=== PATIENT | female | born 2000 | race American Indian/Alaskan Native ===

== ENCOUNTER 2023-05-05 19:45 | Emergency (ER) | payer SELFPAY ==
[2023-05-05] MEDS ORDERED: Sodium Chloride 0.9% 10 ML Syringe FLUSH PRN (21:33)
[2023-05-05] MEDS ORDERED: Acetaminophen 325 MG Tab PO ONE (21:35)
[2023-05-05 21:48] LABS: BASOPHILS ABSOLUTE AUTO 0.1 K/mm3 (0.0-0.2); BASOPHILS PERCENT AUTO 0.6 % (0.0-1.0); EOSINOPHILS ABSOLUTE AUTO 0.2 K/mm3 (0.0-0.4); EOSINOPHILS PERCENT AUTO 1.3 % (0.0-6.0); HEMATOCRIT 34.6 % (37.0-47.0); HEMOGLOBIN 11.9 gm/dl (12.0-16.0); IMMATURE GRAN ABSOLUTE AUTO 0.19 K/mm3 (0.00-0.05); IMMATURE GRAN PERCENT AUTO 1.7 % (0.0-0.4); LYMPHOCYTES ABSOLUTE AUTO 2.1 K/mm3 (1.0-4.8); MEAN CORPUSCULAR HEMOGLOBIN 31.2 pg (28.0-32.0); MEAN CORPUSCULAR HGB CONC 34.4 g/dl (32.0-36.0); MEAN CORPUSCULAR VOLUME 90.6 fl (83.0-99.0); MEAN PLATELET VOLUME 10.7 fl (9.4-12.3); MONOCYTES PERCENT AUTO 9.1 % (0.0-8.0); NEUTROPHILS ABSOLUTE AUTO 7.6 K/mm3 (1.8-7.7); NEUTROPHILS PERCENT AUTO 68.3 % (41.0-71.0); PLATELET COUNT,PLT 240 K/mm3 (150-400); RED BLOOD CELL COUNT 3.82 M/mm3 (4.10-5.30); WHITE BLOOD CELL COUNT,WBC 11.13 K/mm3 (3.9-11.3)
[2023-05-05 21:53] LABS: A/G RATIO 0.7 (1-2); ANION GAP 18.4 (5-15); BILIRUBIN TOTAL 0.2 mg/dL (0.2-1.0); CREATININE 0.5 mg/dL (0.55-1.02); EST CRCL DRUG DOSING (CG) 181.31 mL/min; POTASSIUM,K 3.4 mEq/L (3.5-5.1); PROTEIN TOTAL,TP 7.1 g/dl (6.4-8.2)
[2023-05-05] MEDS ORDERED: Sodium Chloride 0.9% 1,000 ML IV ONE (22:40)
== END 2023-05-06 00:11 | disposition home or self-care (01) ==
LOC: JD.ED 19:45 → JD.OBCHECK 19:45 → EDSTATUS 19:49 → JD.ED 05-06 00:11
DX: O9A.212 Injury, poisoning and certain other consequences of external causes complicating pregnancy, second trimester (principal); S09.90XA Unspecified injury of head, initial encounter; O99.891 Other specified diseases and conditions complicating pregnancy; Z3A.27 27 weeks gestation of pregnancy; Z91.018 Allergy to other foods; Z79.899 Other long term (current) drug therapy; W22.8XXA Striking against or struck by other objects, initial encounter
CPT/HCPCS: 36415; 70450; 76815; 80053; 84484; 85025; 93005; 96360; 99284; A9270; J3490; J7030; 93010

== ENCOUNTER 2023-07-11 07:06 | Inpatient (IN) | payer OTHER, MEDICAID ==
[2023-07-11] MEDS ORDERED: Lidocaine 1% 50 ML MDV INJECT PRN (07:17)
[2023-07-11] MEDS ORDERED: Ondansetron 4 MG/2 ML SDV IVPUSH PRN ×2 (07:17→19:24)
[2023-07-11] MEDS ORDERED: Oxytocin/Lactated Ringers 30 UNIT/500 ML BAG IV SCH ×2 (07:30→20:45)
[2023-07-11] MEDS: Oxytocin/Lactated Ringers 30 UNIT/500 ML BAG IV SCH (07:56)
[2023-07-11] MEDS: Lactated Ringers 1,000 ML IV SCH (07:59)
[2023-07-11 08:44] LABS: BASOPHILS ABSOLUTE AUTO 0.1 K/mm3 (0.0-0.2); BASOPHILS PERCENT AUTO 0.5 % (0.0-1.0); EOSINOPHILS ABSOLUTE AUTO 0.2 K/mm3 (0.0-0.4); EOSINOPHILS PERCENT AUTO 1.6 % (0.0-6.0); HEMATOCRIT 33.8 % (37.0-47.0); HEMOGLOBIN 11.2 gm/dl (12.0-16.0); IMMATURE GRAN ABSOLUTE AUTO 0.09 K/mm3 (0.00-0.05); IMMATURE GRAN PERCENT AUTO 0.8 % (0.0-0.4); LYMPHOCYTES ABSOLUTE AUTO 2.1 K/mm3 (1.0-4.8); LYMPHOCYTES PERCENT AUTO 19.5 % (24.0-44.0); MEAN CORPUSCULAR HEMOGLOBIN 28.1 pg (28.0-32.0); MEAN CORPUSCULAR HGB CONC 33.1 g/dl (32.0-36.0); MEAN CORPUSCULAR VOLUME 84.9 fl (83.0-99.0); MEAN PLATELET VOLUME 11.5 fl (9.4-12.3); MONOCYTES ABSOLUTE AUTO 0.9 K/mm3 (0.0-0.8); MONOCYTES PERCENT AUTO 8.6 % (0.0-8.0); NEUTROPHILS ABSOLUTE AUTO 7.3 K/mm3 (1.8-7.7); PLATELET COUNT,PLT 222 K/mm3 (150-400); RED BLOOD CELL COUNT 3.98 M/mm3 (4.10-5.30); WHITE BLOOD CELL COUNT,WBC 10.64 K/mm3 (3.9-11.3)
[2023-07-11] MEDS ORDERED: ePHEDrine 50 MG/ML SDV IVPUSH PRN ×2 (12:30→20:33)
[2023-07-11] MEDS ORDERED: diphenhydrAMINE 50 MG/ML SDV IVPUSH PRN ×3 (12:30→20:33)
[2023-07-11] MEDS ORDERED: fentaNYL 100 MCG/2 ML SDV EPIDUR PRN (12:30)
[2023-07-11] MEDS ORDERED: Bupivacaine/fentaNYL/NS 100 ML Bag EPIDUR PRN (12:30)
[2023-07-11] MEDS ORDERED: Phenylephrine 1% 10 MG/ML SDV IVPUSH PRN (12:30)
[2023-07-11] MEDS: Nalbuphine HCl 10 MG/ 1ML Amp IVPUSH PRN (14:23)
[2023-07-11] MEDS ORDERED: Azithromycin 500 MG in Sodium Chloride 0.9% 250 ML IV ONE (18:15)
[2023-07-11] MEDS ORDERED: Sodium Chloride 0.9% 10 ML Syringe FLUSH PRN (18:18)
[2023-07-11] MEDS: Azithromycin 500 MG in Sodium Chloride 0.9% 250 ML IV ONE (18:24)
[2023-07-11] MEDS ORDERED: Oxytocin 10 Units/1 ML SDV ONE ×2 (18:30→19:53)
[2023-07-11] MEDS ORDERED: Lactated Ringers 1,000 ML IV SCH (18:30)
[2023-07-11] MEDS ORDERED: Morphine PF 10 MG/10 ML SDV ONE (18:30)
[2023-07-11] MEDS ORDERED: Ketorolac 30 MG/ML SDV ONE (18:30)
[2023-07-11] MEDS ORDERED: Ondansetron 4 MG/2 ML SDV ONE (18:30)
[2023-07-11] MEDS ORDERED: fentaNYL 100 MCG/2 ML SDV ONE (18:30)
[2023-07-11] MEDS: Metoclopramide 10 MG/2 ML SDV IVPUSH ONE (18:36)
[2023-07-11] MEDS: Citric Acid/Sodium Citrate Solution 30 ML Cup PO ONE (18:36)
[2023-07-11] MEDS ORDERED: ceFAZolin 2 GM Vial ONE (19:04)
[2023-07-11] MEDS ORDERED: fentaNYL 100 MCG/2 ML SDV IVPUSH PRN (19:24)
[2023-07-11] MEDS ORDERED: Lactated Ringers 1,000 ML ONE (19:45)
[2023-07-11] MEDS ORDERED: Sennosides 8.6 MG Tab PO PRN (20:33)
[2023-07-11] MEDS ORDERED: Naloxone 0.4 MG/ML SDV IVPUSH PRN (20:33)
[2023-07-11] MEDS: Acetaminophen 325 MG Tab PO SCH (22:19)
[2023-07-11] MEDS: Dextrose 5%-Lactated Ringers 1,000 ML IV SCH (22:21)
[2023-07-11] MEDS: Sodium Chloride 0.9% 10 ML Syringe FLUSH SCH (22:37)
[2023-07-11] MEDS: ceFAZolin 2 GM in Sodium Chloride 0.9% 50 ML IV ONE (22:37)
[2023-07-11] MEDS: Ibuprofen 600 MG Tab PO SCH (23:49)
[2023-07-12] MEDS: oxyCODONE 5 MG Tab PO PRN (02:21)
[2023-07-12 05:54] LABS: HEMATOCRIT 26.4 % (37.0-47.0); MEAN CORPUSCULAR HEMOGLOBIN 29.2 pg (28.0-32.0); MEAN CORPUSCULAR HGB CONC 34.1 g/dl (32.0-36.0); MEAN CORPUSCULAR VOLUME 85.7 fl (83.0-99.0); MEAN PLATELET VOLUME 11.5 fl (9.4-12.3); PLATELET COUNT,PLT 198 K/mm3 (150-400); RED BLOOD CELL COUNT 3.08 M/mm3 (4.10-5.30); WHITE BLOOD CELL COUNT,WBC 10.89 K/mm3 (3.9-11.3)
[2023-07-12] MEDS: Ferrous Sulfate 324 MG Tab.EC PO SCH (20:30)
== END 2023-07-14 19:55 | disposition home or self-care (01) | DRG 788 ==
LOC: JD.OB 07:06 → OBSVTOIN 19:22 → JD.OB 19:22
PROVIDERS: ADMIT Obstetrics & Gynecology; ATTEND Obstetrics & Gynecology
PROC: 10907ZC Drainage of Amniotic Fluid, Therapeutic from Products of Conception, Via Natural or Artificial Opening (ICD-10-PCS; 2023-07-11)
PROC: 10D00Z1 Extraction of Products of Conception, Low, Open Approach (ICD-10-PCS; principal; 2023-07-11 18:30)
DX: O24.424 Gestational diabetes mellitus in childbirth, insulin controlled (principal); O32.1XX0 Maternal care for breech presentation, not applicable or unspecified; O13.4 Gestational [pregnancy-induced] hypertension without significant proteinuria, complicating childbirth; O99.03 Anemia complicating the puerperium; Z3A.37 37 weeks gestation of pregnancy; Z91.018 Allergy to other foods; Z37.0 Single live birth
CPT/HCPCS: 01961; 36415; 59025; 82947; 85025; 85027; 86592; 86850; 86900; 86901; 94762; 99140; A9270-GY; J0456; J0690; J1885; J2274; J2300; J2405; J2590; J2765; J3010; J7050; J7120; J7121; J7999

== ENCOUNTER 2023-11-19 20:28 | Emergency (ER) | payer MEDICAID | END 2023-11-19 22:47 | disposition home or self-care (01) | LOC: JD.ED 20:28 | DX: M25.572 Pain in left ankle and joints of left foot (principal); Z79.899 Other long term (current) drug therapy; X50.9XXA Other and unspecified overexertion or strenuous movements or postures, initial encounter; Y92.512 Supermarket, store or market as the place of occurrence of the external cause; Y99.0 Civilian activity done for income or pay | CPT/HCPCS: 70450; 70450-26; 73610-26-LT; 73610-LT; 73630-26-LT; 73630-LT; 99284 ==

== ENCOUNTER 2024-05-21 15:09 | Emergency (ER) | payer MEDICAID ==
[2024-05-21] MEDS: Lidocaine 1% 10 ML MDV INJECT ONE (16:43)
== END 2024-05-21 16:48 | disposition home or self-care (01) ==
LOC: JD.ED 15:09
DX: S81.012A Laceration without foreign body, left knee, initial encounter (principal); S71.112A Laceration without foreign body, left thigh, initial encounter; Z79.899 Other long term (current) drug therapy; W25.XXXA Contact with sharp glass, initial encounter
CPT/HCPCS: 12002; 99282; 99283; J3490

== ENCOUNTER 2025-01-08 00:47 | Emergency (ER) | payer BC, MEDICAID, OTHER ==
[2025-01-08 01:29] LABS: BASOPHILS ABSOLUTE AUTO 0.1 K/mm3 (0.0-0.2); BASOPHILS PERCENT AUTO 0.7 % (0.0-1.0); EOSINOPHILS ABSOLUTE AUTO 0.2 K/mm3 (0.0-0.4); EOSINOPHILS PERCENT AUTO 2.3 % (0.0-6.0); IMMATURE GRAN ABSOLUTE AUTO 0.04 K/mm3 (0.00-0.05); IMMATURE GRAN PERCENT AUTO 0.5 % (0.0-0.4); LYMPHOCYTES ABSOLUTE AUTO 3.2 K/mm3 (1.0-4.8); LYMPHOCYTES PERCENT AUTO 36.5 % (24.0-44.0); MEAN PLATELET VOLUME 10.0 fl (9.4-12.3); MONOCYTES ABSOLUTE AUTO 0.7 K/mm3 (0.0-0.8); MONOCYTES PERCENT AUTO 7.5 % (0.0-8.0); NEUTROPHILS ABSOLUTE AUTO 4.7 K/mm3 (1.8-7.7); NEUTROPHILS PERCENT AUTO 52.5 % (41.0-71.0); NRBC ABSOLUTE 0.00 (0.00-0.02); NRBC PERCENT 0.0 % (0.0-0.2); PLATELET COUNT,PLT 278 K/mm3 (150-400); RED BLOOD CELL COUNT 4.21 M/mm3 (4.10-5.30); WHITE BLOOD CELL COUNT,WBC 8.83 K/mm3 (3.9-11.3)
[2025-01-08 01:39] LABS: APPEARANCE,URINE SLT CLOUDY (Clear); GLUCOSE,URINE NEGATIVE (Negative); OCCULT BLOOD,URINE NEGATIVE (Negative)
[2025-01-08 01:53] LABS: A/G RATIO 1.1 (1-2); ALANINE AMINOTRANSFERASE,ALT 33.0 U/L (14-59); ASPARTATE AMNIOTRANSFERASE,AST 17.0 U/L (15-37); BILIRUBIN TOTAL 0.4 mg/dL (0.2-1.0); BLOOD UREA NITROGEN,BUN 11.0 mg/dL (7-18); CARBON DIOXIDE,CO2 23.0 mEq/L (21-32); CHLORIDE,CL 104.0 mEq/L (98-107); CREATININE 0.7 mg/dL (0.55-1.02); EST CRCL DRUG DOSING (CG) 127.28 mL/min; ESTIMATED GFR 122.0 mL/min (>60); GLUCOSE RANDOM 159.0 mg/dL (70-99); POTASSIUM,K 3.5 mEq/L (3.5-5.1); PROTEIN TOTAL,TP 6.8 g/dl (6.4-8.2); SODIUM,NA 138.0 mEq/L (136-145)
== END 2025-01-08 04:40 | disposition home or self-care (01) ==
LOC: JD.ED 00:47
DX: O20.9 Hemorrhage in early pregnancy, unspecified (principal); Z79.899 Other long term (current) drug therapy; Z3A.01 Less than 8 weeks gestation of pregnancy
CPT/HCPCS: 36415; 76817; 76817-26; 80053; 81001; 84702; 85025; 99284

== ENCOUNTER 2025-02-11 03:28 | Emergency (ER) | payer BC, OTHER ==
[2025-02-11 05:13] LABS: APPEARANCE,URINE CLEAR (Clear); GLUCOSE,URINE NEGATIVE (Negative); OCCULT BLOOD,URINE NEGATIVE (Negative)
[2025-02-11 05:36] LABS: BASOPHILS ABSOLUTE AUTO 0.1 K/mm3 (0.0-0.2); BASOPHILS PERCENT AUTO 0.4 % (0.0-1.0); EOSINOPHILS ABSOLUTE AUTO 0.2 K/mm3 (0.0-0.4); EOSINOPHILS PERCENT AUTO 1.5 % (0.0-6.0); IMMATURE GRAN ABSOLUTE AUTO 0.06 K/mm3 (0.00-0.05); IMMATURE GRAN PERCENT AUTO 0.5 % (0.0-0.4); LYMPHOCYTES ABSOLUTE AUTO 2.7 K/mm3 (1.0-4.8); LYMPHOCYTES PERCENT AUTO 23.0 % (24.0-44.0); MEAN PLATELET VOLUME 10.3 fl (9.4-12.3); MONOCYTES ABSOLUTE AUTO 0.9 K/mm3 (0.0-0.8); MONOCYTES PERCENT AUTO 7.7 % (0.0-8.0); NEUTROPHILS ABSOLUTE AUTO 7.8 K/mm3 (1.8-7.7); NEUTROPHILS PERCENT AUTO 66.9 % (41.0-71.0); NRBC ABSOLUTE 0.00 (0.00-0.02); NRBC PERCENT 0.0 % (0.0-0.2); PLATELET COUNT,PLT 254 K/mm3 (150-400); RED BLOOD CELL COUNT 4.55 M/mm3 (4.10-5.30); WHITE BLOOD CELL COUNT,WBC 11.64 K/mm3 (3.9-11.3)
[2025-02-11 05:59] LABS: SQUAMOUS EPITHELIAL CELLS,UR 0-5 /hpf (0-5)
[2025-02-11 06:30] LABS: A/G RATIO 1.1 (1-2); ALANINE AMINOTRANSFERASE,ALT 31.0 U/L (14-59); ASPARTATE AMNIOTRANSFERASE,AST 13.0 U/L (15-37); BILIRUBIN TOTAL 0.5 mg/dL (0.2-1.0); BLOOD UREA NITROGEN,BUN 8.0 mg/dL (7-18); CARBON DIOXIDE,CO2 22.0 mEq/L (21-32); CHLORIDE,CL 101.0 mEq/L (98-107); CREATININE 0.7 mg/dL (0.55-1.02); EST CRCL DRUG DOSING (CG) 127.28 mL/min; ESTIMATED GFR 122.0 mL/min (>60); GLUCOSE RANDOM 94.0 mg/dL (70-99); POTASSIUM,K 3.5 mEq/L (3.5-5.1); PROTEIN TOTAL,TP 7.4 g/dl (6.4-8.2); SODIUM,NA 137.0 mEq/L (136-145)
== END 2025-02-11 09:40 | disposition home or self-care (01) ==
LOC: JD.ED 03:28
DX: O20.0 Threatened abortion (principal); Z79.899 Other long term (current) drug therapy; Z86.16 Personal history of COVID-19
CPT/HCPCS: 36415; 80053; 81001; 84702; 85025; 86900; 86901; 99284

== ENCOUNTER 2025-02-23 20:19 | Emergency (ER) | payer OTHER ==
[2025-02-23] MEDS ORDERED: Sodium Chloride 0.9% 10 ML Syringe FLUSH PRN (20:55)
[2025-02-23 21:14] LABS: APPEARANCE,URINE CLEAR (Clear); GLUCOSE,URINE NEGATIVE (Negative); OCCULT BLOOD,URINE NEGATIVE (Negative)
[2025-02-23 21:14] LABS: BASOPHILS ABSOLUTE AUTO 0.0 K/mm3 (0.0-0.2); BASOPHILS PERCENT AUTO 0.5 % (0.0-1.0); EOSINOPHILS ABSOLUTE AUTO 0.1 K/mm3 (0.0-0.4); EOSINOPHILS PERCENT AUTO 1.8 % (0.0-6.0); IMMATURE GRAN ABSOLUTE AUTO 0.02 K/mm3 (0.00-0.05); IMMATURE GRAN PERCENT AUTO 0.3 % (0.0-0.4); LYMPHOCYTES ABSOLUTE AUTO 1.7 K/mm3 (1.0-4.8); LYMPHOCYTES PERCENT AUTO 27.1 % (24.0-44.0); MEAN PLATELET VOLUME 10.8 fl (9.4-12.3); MONOCYTES ABSOLUTE AUTO 0.5 K/mm3 (0.0-0.8); MONOCYTES PERCENT AUTO 8.7 % (0.0-8.0); NEUTROPHILS ABSOLUTE AUTO 3.8 K/mm3 (1.8-7.7); NEUTROPHILS PERCENT AUTO 61.6 % (41.0-71.0); NRBC ABSOLUTE 0.00 (0.00-0.02); NRBC PERCENT 0.0 % (0.0-0.2); PLATELET COUNT,PLT 234 K/mm3 (150-400); RED BLOOD CELL COUNT 4.56 M/mm3 (4.10-5.30); WHITE BLOOD CELL COUNT,WBC 6.23 K/mm3 (3.9-11.3)
[2025-02-23 21:42] LABS: EPITHELIAL CELLS,URINE 0-5 /hpf (0-5)
[2025-02-23 21:46] LABS: A/G RATIO 1.0 (1-2); ALANINE AMINOTRANSFERASE,ALT 39.0 U/L (14-59); ASPARTATE AMNIOTRANSFERASE,AST 18.0 U/L (15-37); BILIRUBIN TOTAL 0.6 mg/dL (0.2-1.0); BLOOD UREA NITROGEN,BUN 4.0 mg/dL (7-18); CARBON DIOXIDE,CO2 23.0 mEq/L (21-32); CHLORIDE,CL 104.0 mEq/L (98-107); CREATININE 0.7 mg/dL (0.55-1.02); EST CRCL DRUG DOSING (CG) 127.28 mL/min; ESTIMATED GFR 122.0 mL/min (>60); GLUCOSE RANDOM 117.0 mg/dL (70-99); POTASSIUM,K 3.4 mEq/L (3.5-5.1); PROTEIN TOTAL,TP 6.9 g/dl (6.4-8.2); SODIUM,NA 138.0 mEq/L (136-145)
[2025-02-23 21:50] LABS: HCG QUANTITATIVE 37101.0 mIU/mL
== END 2025-02-23 22:19 | disposition home or self-care (01) ==
LOC: JD.ED 20:19
DX: O26.891 Other specified pregnancy related conditions, first trimester (principal); R10.2 Pelvic and perineal pain; O21.9 Vomiting of pregnancy, unspecified; Z3A.11 11 weeks gestation of pregnancy; Z79.899 Other long term (current) drug therapy
CPT/HCPCS: 36415; 76817; 76817-26; 80053; 81001; 84702; 85025; 87086; 96374; 99284; 99284-25; A9270-GY; J2765; J7030

== ENCOUNTER 2025-03-02 01:14 | Emergency (ER) | payer OTHER ==
[2025-03-02 02:09] LABS: APPEARANCE,URINE CLEAR (Clear); GLUCOSE,URINE NEGATIVE (Negative); OCCULT BLOOD,URINE 3+ (Negative)
[2025-03-02 02:33] LABS: EPITHELIAL CELLS,URINE 0-5 /hpf (0-5); WBC CLUMPS,URINE MODERATE /hpf (NOT SEEN)
== END 2025-03-02 04:10 | disposition home or self-care (01) ==
LOC: JD.ED 01:14
DX: O23.41 Unspecified infection of urinary tract in pregnancy, first trimester (principal); E66.9 Obesity, unspecified; Z3A.12 12 weeks gestation of pregnancy; Z79.899 Other long term (current) drug therapy; Z86.16 Personal history of COVID-19; Z68.32 Body mass index [BMI] 32.0-32.9, adult
CPT/HCPCS: 36415; 76801; 81001; 84702; 87086; 99284; A9270; 87088; 87186

== ENCOUNTER 2025-04-06 14:19 | Emergency (ER) | payer OTHER, BC | END 2025-04-06 17:01 | disposition home or self-care (01) | LOC: JD.ED 14:19 | DX: O20.9 Hemorrhage in early pregnancy, unspecified (principal); E66.9 Obesity, unspecified; Z79.899 Other long term (current) drug therapy; Z86.16 Personal history of COVID-19; Z3A.17 17 weeks gestation of pregnancy; Z68.32 Body mass index [BMI] 32.0-32.9, adult | CPT/HCPCS: 76815; 76815-26; 99284 ==

== ENCOUNTER 2025-05-04 00:51 | Emergency (ER) | payer OTHER ==
[2025-05-04] MEDS: Ondansetron 4 MG/2 ML SDV IV STA (01:12)
[2025-05-04 01:51] LABS: BASOPHILS ABSOLUTE AUTO 0.0 K/mm3 (0.0-0.2); BASOPHILS PERCENT AUTO 0.4 % (0.0-1.0); EOSINOPHILS ABSOLUTE AUTO 0.1 K/mm3 (0.0-0.4); EOSINOPHILS PERCENT AUTO 1.1 % (0.0-6.0); IMMATURE GRAN ABSOLUTE AUTO 0.04 K/mm3 (0.00-0.05); IMMATURE GRAN PERCENT AUTO 0.4 % (0.0-0.4); LYMPHOCYTES ABSOLUTE AUTO 2.5 K/mm3 (1.0-4.8); LYMPHOCYTES PERCENT AUTO 25.1 % (24.0-44.0); MEAN PLATELET VOLUME 10.7 fl (9.4-12.3); MONOCYTES ABSOLUTE AUTO 0.8 K/mm3 (0.0-0.8); MONOCYTES PERCENT AUTO 7.5 % (0.0-8.0); NEUTROPHILS ABSOLUTE AUTO 6.6 K/mm3 (1.8-7.7); NEUTROPHILS PERCENT AUTO 65.5 % (41.0-71.0); NRBC ABSOLUTE 0.00 (0.00-0.02); NRBC PERCENT 0.0 % (0.0-0.2); PLATELET COUNT,PLT 238 K/mm3 (150-400); RED BLOOD CELL COUNT 4.18 M/mm3 (4.10-5.30); WHITE BLOOD CELL COUNT,WBC 10.13 K/mm3 (3.9-11.3)
[2025-05-04 02:01] LABS: A/G RATIO 0.8 (1-2); ALANINE AMINOTRANSFERASE,ALT 17 U/L (14-59); ASPARTATE AMNIOTRANSFERASE,AST 12 U/L (15-37); BILIRUBIN TOTAL 0.4 mg/dL (0.2-1.0); BLOOD UREA NITROGEN,BUN 9 mg/dL (7-18); CARBON DIOXIDE,CO2 23 mEq/L (21-32); CHLORIDE,CL 103 mEq/L (98-107); CREATINE KINASE,CK 88 U/L (26-192); CREATININE 0.7 mg/dL (0.55-1.02); ESTIMATED GFR 122 mL/min (>60); GLUCOSE RANDOM 105 mg/dL (70-99); POTASSIUM,K 3.4 mEq/L (3.5-5.1); PROTEIN TOTAL,TP 7.0 g/dl (6.4-8.2); SODIUM,NA 137 mEq/L (136-145)
== END 2025-05-04 03:10 | disposition home or self-care (01) ==
LOC: JD.ED 00:51
DX: O99.891 Other specified diseases and conditions complicating pregnancy (principal); R10.31 Right lower quadrant pain; R10.32 Left lower quadrant pain; Z3A.21 21 weeks gestation of pregnancy; Z86.16 Personal history of COVID-19; V49.50XA Passenger injured in collision with unspecified motor vehicles in traffic accident, initial encounter; Y93.89 Activity, other specified
CPT/HCPCS: 36415; 76815; 80053; 82550; 83690; 83735; 85025; 96374; 99285; A9270; J2405